=== PATIENT | male | born 1955 | race Caucasian/White ===

== ENCOUNTER → 2024-09-14 | Outpatient (CLI) | payer MEDICARE, OTHER | LOC: M CARPUL 08:37 | PROVIDERS: ATTEND Internal Medicine Critical Care Medicine | DX: J44.9 Chronic obstructive pulmonary disease, unspecified (principal) ==

== ENCOUNTER → 2025-06-28 | Outpatient (CLI) | payer MEDICARE | LOC: M CARPUL 12:55 | PROVIDERS: ATTEND Internal Medicine Critical Care Medicine | DX: J43.9 Emphysema, unspecified (principal) ==